=== PATIENT | female | born 1975 | race Two or more races ===

== ENCOUNTER 2021-07-08 16:00 | Emergency (ER) | payer OTHER, SELFPAY ==
--- NOTE | ~2021-07-08 | US_ITS ---
EXAMINATION: US ABDOMEN LIMITED CLINICAL INFORMATION: Right upper quadrant pain, question cholelithiasis. COMPARISON: None TECHNIQUE: Real-time imaging of the right upper quadrant abdominal viscera. FINDINGS: PANCREAS: The visualized proximal portion of the pancreas is unremarkable. The distal portion is obscured secondary to overlying bowel gas. LIVER: The liver is normal in size. The liver contour is normal. Parenchymal echogenicity is normal. No focal hepatic lesion. There is no intrahepatic biliary duct dilatation seen. GALLBLADDER: The gallbladder is physiologically distended without evidence of stones, sludge, polyps, wall thickening or pericholecystic fluid. Sonographic Rodriguez sign is reportedly negative. COMMON BILE DUCT: Normal in caliber measuring 0.4 cm in diameter. RIGHT KIDNEY: No hydronephrosis. No renal calculi or focal parenchymal lesions. The kidney measures 11.1 cm in maximum dimension. FREE FLUID: None. US/US abdomen limited IMPRESSION: No abnormality demonstrated.
[2021-07-08 18:16] VITALS: BP 181/100; PULSE 82; RESP 18; TEMP 37.1; O2SAT 100; BMI 30.9
[2021-07-08 19:02] LABS: MANUAL DIFF FLAG NO
[2021-07-08 19:03] LABS: Basophils Percent Auto 0.3 % (0-2); Eosinophils Absolute Auto 0.1 X10*3/uL (0.0-0.4); Eosinophils Percent Auto 0.7 % (0-4); Hematocrit 38.2 % (37.0-47.0); Hemoglobin 12.5 g/dl (12.0-16.0); Imm Gran Abs Auto 0.01 X10*3/uL (0.00-0.03); Imm Gran Pct Auto 0.1 % (0.0-0.4); Lymphocytes Absolute Auto 1.8 X10*3/uL (1.2-4.9); Lymphocytes Percent Auto 24.7 % (20-40); Mean Corpuscular HGB Conc 32.7 g/dl (31.0-35.0); Mean Corpuscular Hemoglobin 29.9 pg (27.0-33.0); Mean Corpuscular Volume 91.4 fL (80.0-98.0); Mean Platelet Volume 10.1 fL (9.4-12.3); Monocytes Absolute Auto 0.7 X10*3/uL (0.1-1.2); Monocytes Percent Auto 9.1 % (2-11); Neutrophils Absolute Auto 4.8 x10*3/uL (2.0-8.3); Neutrophils Percent Auto 65.1 % (45-73); Platelet Count 415 X10*3/uL (160-400); Red Blood Count 4.18 X10*6/uL (4.20-5.50); Red Cell Distribution Width 12.9 % (11.0-16.0); White Blood Count 7.4 X10*3/uL (4.8-10.8)
[2021-07-08 19:08] LABS: Appearance Urine CLEAR; Color Urine YELLOW; Glucose Urine UA NEG (NEG); Leukocyte Esterase Urine NEG (NEG); Nitrite Urine NEG (NEG); Urine Blood NEG (NEG); Urine Ketones 40 MG/DL (NEG); Urine Protein NEG (NEG-TRACE)
[2021-07-08 19:17] LABS: Anion Gap 16 (12-20); Blood Urea Nitrogen 7 mg/dL (9-16); Calcium 10.2 mg/dL (8.4-10.2); Carbon Dioxide 22 mmol/L (22-29); Chloride 104 mmol/L (96-108); Creatinine Clr Calc Pharmacy 90.5; Estimated Glomerular Filt Rate > 60; Glucose Random 84 mg/dL (60-115); Lipase 14 U/L (8-78); Potassium 3.8 mmol/L (3.3-5.1); Sodium 138 mmol/L (135-145)
--- NOTE | 2021-07-08 23:36 | ED.ABDPAIN ---
HPI - Abdominal Pain General Chief Complaint: Abdominal Pain Stated Complaint: sharp pain in abd Time Seen by Provider: 07/08/21 23:36 Source: patient Mode of arrival: ambulatory Limitations: no limitations History of Present Illness HPI narrative: Patient with no significant abdominal complaints in the past noticed pain in the epigastric area for last 3 days specially after eating food slight nausea slight bloating this no vomiting no diarrhea no fever Related Data Previous Rx's Medication Instructions Recorded pantoprazole 40 mg tablet,delayed 40 mg PO DAILY #30 tab 07/09/21 release (Protonix) sucralfate 1 gram tablet 1 g PO TID #90 tab 07/09/21 Allergies Allergy/AdvReac Type Severity Reaction Status Date / Time No Known Allergies Allergy Verified 07/08/21 18:15 Review of Systems Review of Systems Yes all other systems are reviewed and are negative [facility] Past Medical History Medical History HTN (hypertension) Social History Social History Advance Directives: No Advance Directives Information Provided: No Physical Exam ED Vital Signs: Vital Signs - 24 hr 07/08/21 18:16 07/08/21 23:51 07/09/21 00:05 Temperature 98.7 F Pulse Rate 82 69 Respiratory Rate 18 18 18 Blood Pressure 181/100 H 152/79 H Pulse Oximetry 100 100 100 07/09/21 01:51 Temperature 97.8 F Pulse Rate 68 Respiratory Rate 12 Blood Pressure 139/82 Pulse Oximetry 99 BMI result Body Mass Index 30.9 Appearance: Alert. Oriented X3. No acute distress. Eyes: No pallor/ icterus ENT: Pharynx normal. Oral Mucosa moist Neck: Normal inspection. Neck supple. CVS: Normal heart rate and rhythm. Pulses normal. Respiratory: No respiratory distress. Equal air entry bilateral, no wheezing/rales/rhonchi Abdomen: Soft , tenderness right upper quadrant and epigastric area no rebound tenderness or guarding Bowel sounds are present, no mass palpable, no CVA tenderness Skin: Skin warm and dry. Normal skin color. Normal skin turgor. Extremities: No lower extremity edema. No calf tenderness Neuro: Oriented X 3. MDM - Abdominal Pain MDM Narrative Medical decision making narrative: Ultrasound negative for gallstones pain likely from gastritis discharge patient home on Protonix and sucralfate Lab Data Result diagrams: 07/08/21 18:57 07/08/21 18:57 Labs: Lab Results 07/08/21 07/08/21 07/08/21 Range/Units 18:57 18:57 18:57 WBC 7.4 (4.8-10.8) X10*3/uL RBC 4.18 L (4.20-5.50) X10*6/uL Hgb 12.5 (12.0-16.0) g/dl Hct 38.2 (37.0-47.0) % MCV 91.4 (80.0-98.0) fL MCH 29.9 (27.0-33.0) pg MCHC 32.7 (31.0-35.0) g/dl RDW 12.9 (11.0-16.0) % Plt Count 415 H (160-400) X10*3/uL MPV 10.1 (9.4-12.3) fL Immature Gran % (Auto) 0.1 (0.0-0.4) % Neut % (Auto) 65.1 (45-73) % Lymph % (Auto) 24.7 (20-40) % Swain % (Auto) 9.1 (2-11) % Eos % (Auto) 0.7 (0-4) % Baso % (Auto) 0.3 (0-2) % Lymph # (Auto) 1.8 (1.2-4.9) X10*3/uL Swain # (Auto) 0.7 (0.1-1.2) X10*3/uL Eos # (Auto) 0.1 (0.0-0.4) X10*3/uL Baso # (Auto) 0.0 (0.0-0.2) X10*3/uL Abs Immat Gran (auto) 0.01 (0.00-0.03) X10*3/uL Absolute Neuts (auto) 4.8 (2.0-8.3) x10*3/uL Absolute Nucleated RBC 0.000 (0.0-0.012) X10*3/uL Nucleated RBC % (auto) 0.0 (0.0-0.2) /100WBC Sodium 138 (135-145) mmol/L Potassium 3.8 (3.3-5.1) mmol/L Chloride 104 (96-108) mmol/L Carbon Dioxide 22 (22-29) mmol/L Anion Gap 16 (12-20) BUN 7 L (9-16) mg/dL Creatinine 0.63 (0.5-1.4) mg/dL Estim Creat Clear Calc 90.5 Estimated GFR > 60 Random Glucose 84 (60-115) mg/dL Calcium 10.2 (8.4-10.2) mg/dL Total Bilirubin 0.3 (0.0-1.0) mg/dL Direct Bilirubin 0.2 (0.0-0.5) mg/dL AST 36 H (5-31) U/L ALT 59 H (0-31) U/L Alkaline Phosphatase 65 (39-117) U/L Total Protein 7.9 (6.5-8.0) g/dL Albumin 4.5 (3.5-5.0) g/dL Lipase 14 (8-78) U/L Urine Color YELLOW Urine Appearance CLEAR Urine pH 6.0 (5.0-8.0) Ur Specific [place] 1.010 (1.005-1.025) Urine Protein NEG (NEG-TRACE) MG/DL Urine Glucose (UA) NEG (NEG) MG/DL Urine Ketones 40 (NEG) MG/DL Urine Blood NEG (NEG) Urine Nitrite NEG (NEG) Ur Leukocyte Esterase NEG (NEG) Discharge Plan Discharge Clinical Impression: Gastritis Patient Disposition: Home, Self-Care Instructions: Gastritis (ED) Additional Instructions: Avoid fried/spicy food Take Protonix and sucralfate as advised Follow-up with PCP Prescriptions: New pantoprazole [Protonix] 40 mg tablet,delayed release (DR/EC) 40 mg PO DAILY Qty: 30 0RF sucralfate 1 gram tablet 1 g PO TID Qty: 90 0RF Interventions: ED Discharge Assessment Last Done: 07/09/21 01:59 Discharge Date/Time: 07/09/21 02:00
[2021-07-08 23:51] VITALS: BP 152/79; PULSE 69; RESP 18; O2SAT 100
[2021-07-08 23:54] LABS: Alanine Aminotransferase 59 U/L (0-31); Albumin Level 4.5 g/dL (3.5-5.0); Alkaline Phosphatase 65 U/L (39-117); Aspartate Amino Transferase 36 U/L (5-31); Bilirubin Direct 0.2 mg/dL (0.0-0.5); Bilirubin Total 0.3 mg/dL (0.0-1.0); Total Protein 7.9 g/dL (6.5-8.0)
[2021-07-08] MEDS: oxyCODONE HCl Immed Release 5 MG TABLET PO (23:54)
[2021-07-09 00:05] VITALS: RESP 18; O2SAT 100
[2021-07-09 01:51] VITALS: BP 139/82; PULSE 68; RESP 12; TEMP 36.6; O2SAT 99
== END 2021-07-09 02:00 | disposition home or self-care (01) ==
PROVIDERS: Emergency Provider Internal Medicine; PCP Internal Medicine
DX: K29.70 Gastritis, unspecified, without bleeding (principal); R10.13 Epigastric pain; Z79.899 Other long term (current) drug therapy
CPT/HCPCS: 36415; 76705; 80048; 80076; 81003; 83690; 85025; 99283

== ENCOUNTER 2021-09-08 11:15 | Emergency (ER) | payer OTHER, SELFPAY ==
--- NOTE | 2021-09-08 11:25 | ECG_ITS ---
Test Reason : cp Blood Pressure : / mmHG Vent. Rate : 117 BPM Atrial Rate : 117 BPM P-R Int : 130 ms QRS Dur : 068 ms QT Int : 302 ms P-R-T Axes : 052 030 023 degrees QTc Int : 421 ms Sinus tachycardia Otherwise normal ECG No previous ECGs available Referred By: Generic ED Physician Electronically Signed By:LYNDSAY CANO MD
[2021-09-08 11:33] VITALS: BP 186/94; PULSE 121; RESP 14; TEMP 36.6; O2SAT 100; BMI 30.9
--- NOTE | 2021-09-08 16:11 | ED_ITS ---
HPI - General Adult General Chief complaint: Headache Stated complaint: high BP, chest pain Time Seen by Provider: 09/08/21 16:10 Source: patient History of Present Illness HPI narrative: This is a 45-year-old female with a history of hypertension, who has had recent sinus congestion, sneezing, itchy eyes. The patient has been seen twice in Urgent Care. She was initially placed on a ?syrup?, but went back yesterday and was prescribed amoxicillin. She notes she continues to have nasal congestion and also today has had some mild headache. She took her blood pressure at work and was elevated. She does take lisinopril 20 mg a day in the morning. She has recently been on Zyrtec for allergies but has not used any nasal inhaler. Her headache is gone now. She denies any current chest pain or shortness of breath, nausea vomiting, focal weakness or numbness in arms face or legs. Related Data Previous Rx's Medication Instructions Recorded pantoprazole 40 mg tablet,delayed 40 mg PO DAILY #30 tab 07/09/21 release (Protonix) sucralfate 1 gram tablet 1 g PO TID #90 tab 07/09/21 fluticasone propionate 50 2 spray INTRANASAL DAILY #16 g 09/08/21 mcg/actuation nasal spray,suspension (Flonase Allergy Relief) lisinopril 30 mg tablet 30 mg PO DAILY #30 tab 09/08/21 Allergies Allergy/AdvReac Type Severity Reaction Status Date / Time No Known Allergies Allergy Verified 07/08/21 18:15 Review of Systems Review of Systems: Yes all other systems are reviewed and are negative Constitutional: Constitutional: Reports as per HPI, Denies fever(s) and Reports headache(s) Eyes: Eyes: Reports as per HPI and Reports no additional eye complaints ENT: Reports system reviewed and no additional complaints, except as documented, Reports as per HPI, Reports headache(s), Reports nasal congestion, Reports nasal discharge and Denies sore throat Cardiovascular: Cardiovascular: Reports as per HPI, Denies chest pain and Denies dyspnea Respiratory: Respiratory: Reports as per HPI, Denies cough and Denies dyspnea Gastrointestinal: Gastrointestinal: Reports as per HPI, Denies abdominal pain, Denies diarrhea and Denies vomiting Genitourinary: Genitourinary: Reports as per HPI, Denies hematuria, Denies urinary frequency and Denies dysuria Musculoskeletal: Musculoskeletal: Reports no additional musculoskeletal complaints and Denies numbness Integumentary/Breasts: Skin/Breast: Reports as per HPI and Denies rash Neurologic: Reports as per HPI, Reports headache(s), Denies focal weakness and Denies numbness Psychiatric: Psychiatric: Reports no additional psychiatric complaints and Reports as per HPI Endocrine: Endocrine: Reports no additional endocrine complaints and Reports as per HPI Hematologic/Lymphatic: Hematologic/Lymphatic: Reports no additional hematologic/lymphatic complaints, Reports as per HPI and Reports other (No peripheral edema) FOR[facility]LY [facility], [facility] Past Medical History Medical History HTN (hypertension) Social History Social History Advance Directives: No Advance Directives Information Provided: Yes Physical Exam ED Vital Signs: Vital Signs - 24 hr 09/08/21 11:33 09/08/21 16:52 09/08/21 17:21 Temperature 98 F Pulse Rate 121 H 98 Respiratory Rate 14 16 Blood Pressure 186/94 H 165/107 H 125/79 Pulse Oximetry 100 100 BMI result Body Mass Index 30.9 Const Other: Patient overall well appearing, has obvious nasal congestion/rhinorrhea General: no acute distress Orientation/consciousness: patient oriented x3 HENMT Head: Yes normal to inspection General nose exam: Normal external nose present Mouth: moist mucous membranes Throat: Yes posterior oropharynx normal, Yes tonsils normal and Yes uvula midline Eyes Eyelids: Yes eyelids normal Conjunctivae: conjunctivae normal Pupils: Equal, round and reactive pupils present Neck Neck: Yes supple Resp Effort & Inspection: normal respiratory effort Auscultation: clear to auscultation bilaterally Cardio Rate: regular rate Rhythm: regular rhythm Heart sounds: S1 normal heart sound present, S2 normal heart sound present, no gallops, no murmurs and no rubs GI Inspection: No distended Palpation (GI): Soft to palpation and nontender Auscultation: normal bowel sounds Skin General skin exam: other (Warm and dry) Neuro General: patient oriented x3 and CN's II-XI intact bilaterally Cranial nerves: Yes Equal, round and reactive pupils present Extrem General: Yes no pedal edema Psych Affect: normal affect Attitude: cooperative Medical Decision Making [facility] Narrative Medical decision making narrative: Patient with complaint of headache, allergy symptoms, some chest discomfort. Patient is on blood pressure medicine, lisinopril 20 mg daily. Patient was significantly hypertensive, improved with lisinopril 10 mg p.o. and clonidine 0.2 mg p.o.. Patient felt better. EKG shows no concerning findings. Headache seems to be related to congestion. Patient has been on antihistamine, will add Flonase as she clearly still has rhinorrhea. Will recommend the patient increase her lisinopril to 30 mg daily and follow up with primary care physician ECG Data Attestation: I personally reviewed and interpreted this ECG as follows: Interpretation: Sinus tachycardia with a rate of 117. No ST elevation or depression, borderline atrial enlargement. Discharge Plan Discharge Clinical Impression: Hypertension, Acute seasonal allergic rhinitis Patient Disposition: Home, Self-Care Instructions: Allergic Rhinitis (ED), Hypertension (ED), How to Use Nasal [place] (ED) Additional Instructions: Increase your lisinopril to 30 mg in the morning. Use Flonase as prescribed, in addition to the Zyrtec you are using. Follow up with her primary care physician for re-evaluation of her blood pressure. Return for any new or worsened symptoms Prescriptions: New fluticasone propionate [Flonase Allergy Relief] 50 mcg/actuation spray,suspension 2 spray intranasal DAILY Qty: 16 1RF Rx Instructions: administer into each nostril lisinopril 30 mg tablet 30 mg PO DAILY Qty: 30 0RF No Action pantoprazole [Protonix] 40 mg tablet,delayed release (DR/EC) 40 mg PO DAILY Qty: 30 0RF sucralfate 1 gram tablet 1 g PO TID Qty: 90 0RF Interventions: ED Discharge Assessment Last Done: 09/08/21 18:22 Discharge Date/Time: 09/08/21 18:23
[2021-09-08 16:52] VITALS: BP 165/107; PULSE 98; RESP 16; O2SAT 100
[2021-09-08] MEDS: lisinopriL 10 MG TABLET PO (16:53)
[2021-09-08] MEDS: cloNIDine HCL 0.2 MG TABLET PO (16:53)
[2021-09-08 17:21] VITALS: BP 125/79
== END 2021-09-08 18:23 | disposition home or self-care (01) ==
PROVIDERS: Emergency Provider Emergency Medicine
DX: J30.2 Other seasonal allergic rhinitis (principal); R51.9 Headache, unspecified; I10 Essential (primary) hypertension; Z79.899 Other long term (current) drug therapy
CPT/HCPCS: 93005; 99283; 99284

== ENCOUNTER 2022-08-12 09:00 | Emergency (ER) | payer OTHER, SELFPAY ==
--- NOTE | ~2022-08-12 | CT_ITS ---
CT ANGIOGRAM NECK WITH CONTRAST CT ANGIOGRAM BRAIN WITH CONTRAST CLINICAL INFORMATION: Dizziness and headaches. COMPARISON: None available. TECHNIQUE: Test bolus sequences followed by intravenous administration 70 mL of Omnipaque 350. Helical imaging was performed in the axial plane from the thoracic inlet to the skull vertex. Delayed postcontrast imaging of the head was also performed. The data was processed at the clinical technologist workstation for generation of MIP sequences. Angled MIPs and volume rendered reformatted images were also generated at an offline 3D workstation under concurrent supervision. Stenoses are assessed in accordance with NASCET criteria unless otherwise indicated. This CT examination was performed using dose optimization techniques as appropriate, variously including the following: *Automated exposure control *Adjustment of mA and/or kV according to patient size (this includes techniques or standardized protocols for targeted exams where dose is matched to indication/reason for exam; i.e. extremities or head) *Use of iterative reconstruction technique FINDINGS: BRAIN: [There is no intracranial hemorrhage, hydrocephalus, extra-axial surface collection, midline shift, or other herniation pattern. Mcmahan to white matter differentiation is diffusely maintained without evidence of an evolved acute territorial infarct. The basilar cisterns are preserved. No significant soft tissue abnormality. No acute osseous abnormality. The paranasal sinuses and the mastoid air cells are well aerated.] CERVICAL SOFT TISSUES AND LUNG APICES: [Unremarkable. ] NECK CTA: [There is a classic 3 vessel configuration of the aortic arch. Proximal arch vessels are non-stenotic. The vertebral arteries are codominant. No significant ostial stenosis is visualized on either side. Both vertebral arteries are widely patent throughout their extracranial cervical course. Both common and internal carotid arteries are normal in course and caliber.] BRAIN CTA: [There is normal opacification of major intracranial arteries. No focal flow-limiting stenosis nor discrete proximal large artery occlusion. No aneurysm. Timing of the contrast bolus allows assessment of the major dural venous sinuses, which all opacify normally] CT/CT head/brain wo IV con IMPRESSION: Unremarkable CTA of the head and neck.
--- NOTE | ~2022-08-12 | CT_ITS ---
CT ANGIOGRAM NECK WITH CONTRAST CT ANGIOGRAM BRAIN WITH CONTRAST CLINICAL INFORMATION: Dizziness and headaches. COMPARISON: None available. TECHNIQUE: Test bolus sequences followed by intravenous administration 70 mL of Omnipaque 350. Helical imaging was performed in the axial plane from the thoracic inlet to the skull vertex. Delayed postcontrast imaging of the head was also performed. The data was processed at the production control technologist workstation for generation of MIP sequences. Angled MIPs and volume rendered reformatted images were also generated at an offline 3D workstation under concurrent supervision. Stenoses are assessed in accordance with NASCET criteria unless otherwise indicated. This CT examination was performed using dose optimization techniques as appropriate, variously including the following: *Automated exposure control *Adjustment of mA and/or kV according to patient size (this includes techniques or standardized protocols for targeted exams where dose is matched to indication/reason for exam; i.e. extremities or head) *Use of iterative reconstruction technique FINDINGS: BRAIN: [There is no intracranial hemorrhage, hydrocephalus, extra-axial surface collection, midline shift, or other herniation pattern. Mcmahan to white matter differentiation is diffusely maintained without evidence of an evolved acute territorial infarct. The basilar cisterns are preserved. No significant soft tissue abnormality. No acute osseous abnormality. The paranasal sinuses and the mastoid air cells are well aerated.] CERVICAL SOFT TISSUES AND LUNG APICES: [Unremarkable. ] NECK CTA: [There is a classic 3 vessel configuration of the aortic arch. Proximal arch vessels are non-stenotic. The vertebral arteries are codominant. No significant ostial stenosis is visualized on either side. Both vertebral arteries are widely patent throughout their extracranial cervical course. Both common and internal carotid arteries are normal in course and caliber.] BRAIN CTA: [There is normal opacification of major intracranial arteries. No focal flow-limiting stenosis nor discrete proximal large artery occlusion. No aneurysm. Timing of the contrast bolus allows assessment of the major dural venous sinuses, which all opacify normally] CT/CT angio head neck IMPRESSION: Unremarkable CTA of the head and neck.
[2022-08-12 09:11] VITALS: BP 174/85; PULSE 72; RESP 14; O2SAT 100; BMI 28.6
--- NOTE | 2022-08-12 09:36 | ED_ITS ---
HPI - Dizziness General Chief Complaint: Dizziness Stated Complaint: Dizziness per EMS Time Seen by Provider: 08/12/22 09:11 Source: patient and RN notes reviewed Mode of arrival: EMS Limitations: no limitations History of Present Illness HPI Narrative: This is a 46-year-old female, with a past medical history of hypertension, who presents to the emergency department today with acute onset of dizziness which started at 7:30 a.m. this morning. 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 She describes his dizziness as if she was on boat, denies as if the room was spinning. Patient reports that she had to immediately sit down. She states that she had the nurse check her blood pressure and her blood pressure was 170s/90s. She states that this is unusually high, reports she typically has a blood pressure systolic at or below 140. Her symptoms have not resolved since this onset. She reports a mild posterior headache as well as associated nausea. She reports that over this past week she has felt okay denies any recent URI symptoms. She reports the dizziness worsens with positional changes and with ambulation. She denies any ringing in her ears, fevers, chills, vomiting, diarrhea, abdominal pain. Denies history of vertigo in the past. She reports that she recently had started Zoloft. MD elicited complaint: lightheadedness and near syncope Timing: sudden onset Severity: moderate Description: sense of movement, off-balance and near-syncope Context: change in medication (Recently started Zoloft) History of similar symptoms: No Exacerbating factors: movement/ambulation and change in body position Associated symptoms: denies other symptoms Associated neuro symptoms: vision changes Related Data Previous Rx's Medication Instructions Recorded pantoprazole 40 mg tablet,delayed 40 mg PO DAILY #30 tabs 07/09/21 release (Protonix) sucralfate 1 gram tablet 1 g PO TID #90 tabs 07/09/21 fluticasone propionate 50 2 spray intranasal DAILY #16 grams 09/08/21 mcg/actuation nasal spray,suspension (Flonase Allergy Relief) lisinopril 30 mg tablet 30 mg PO DAILY #30 tabs 09/08/21 meclizine 25 mg tablet 25 mg PO BID PRN dizziness #30 tabs 08/12/22 ondansetron 4 mg disintegrating 4 mg PO Q6H PRN nausea and 08/12/22 tablet vomiting #14 tabs Allergies Allergy/AdvReac Type Severity Reaction Status Date / Time No Known Allergies Allergy Verified 08/12/22 09:16 [facility] Past Medical History Medical History HTN (hypertension) Social History Social History Smoked in Last 30 Days: No Advance Directives: No Physical Exam Vital Signs: Vital Signs: Last Vital Signs Temp 98.1 F 08/12/22 11:40 Pulse 63 08/12/22 11:39 Resp 14 08/12/22 11:40 BP 141/73 H 08/12/22 11:39 Pulse Ox 97 08/12/22 11:40 O2 Del Method Room Air 08/12/22 11:40 BMI result Body Mass Index 28.6 Appearance: Alert. Oriented X3. No acute distress. Eyes: Pupils equal, round and reactive to light. EOMI. No nystagmus. ENT: Pharynx normal. Oral pharynx is nonerythematous, nonedematous, uvula is midline. Tongue midline. Neck: Normal inspection. Neck supple. Full range of motion. Mild tenderness to palpation overlying the left cervical paraspinous muscles and occiput. CVS: Normal heart rate and rhythm. Pulses normal. S1-S2 regular, no murmurs, rubs, or gallops Respiratory: No respiratory distress. Breath sounds normal. Lungs clear to auscultation bilaterally Abdomen: Soft and nontender. +BS x4 Skin: Skin warm and dry. Normal skin color. Normal skin turgor. No rashes. Extremities: No lower extremity edema. No calf tenderness. Neuro: Oriented X 3. No motor deficit. No sensory deficit. CN II-XII intact. Symmetric smile, able to raise eyebrows, strength is 5/5 in upper and lower extremities. Ambulatory with steady gait. Negative Romberg. Distal sensation and circulation intact. NIH Stroke Scale Time: 07:30 Level of Consciousness: Alert Level of Consciousness Questions: Answers both questions correctly Level of Consciousness Commands: Performs both tasks correctly Best Gaze: Normal Visual: No visual loss Facial Palsy: Normal Motor Arm (Right): No drift Motor Arm (Left): No drift Motor Leg (Right): No drift Motor Leg (Left): No drift Sensory: Normal Best Language: No aphasia Dysarthia: Normal Extinction and Inattention: No abnormality Course Reevaluation(s) Reevaluation #1: CT, CTA head and neck were reviewed as unremarkable. Patient re-evaluated, patient resting comfortably in stretcher. Patient reports that she still is dizzy, however reports that the symptoms are slowly improving. Orthostatic vital signs and 1 L of IV fluids ordered. Patient will be medicated with 25 mg IV Benadryl and 10 mg of Reglan. Time: 10:45 Reevaluation #2: Patient re-evaluated, reports that she is feeling much better after IV fluids and medications. CT negative, no electrolyte abnormalities, patient is not orthostatic, UA without any signs of infection, there is large blood however patient is currently has her menses right now. H&H within normal limits. Patient has a follow-up with her primary care physician later on today. Long discussion regarding negative workup, although it is uncertain what caused her symptoms today and was wondering if it was secondary to her high blood pressure. Patient's blood pressure 130s/70s now. Discussed with patient that we are not going to make any adjustments to her hypertensive medications at this time although this is a good discussion for her to bring up at her primary care visit later on this afternoon. Will treat with meclizine and Zofran as needed. Patient given referral to Neurology and pipe smoking machine offbearer. Patient understands and agrees with plan. Time: 13:18 Medications Administered Discontinued Medications Generic Name Dose Route Start Last Admin Trade Name Willa PRN Reason Stop Dose Admin Diphenhydramine HCl 25 mg 08/12/22 11:17 08/12/22 11:52 Diphenhydramine Hcl 50 Mg/Ml Vial IVPUSH 08/12/22 11:18 25 mg ONCE ONE Administration Sodium Chloride 1,000 mls @ 999 mls/hr 08/12/22 11:09 08/12/22 11:18 Ns IVCONT 08/12/22 12:09 999 mls/hr .Q1H1M ONE Administration Iohexol 70 ml 08/12/22 10:03 08/12/22 10:03 Iohexol 350 Mg/Ml 100 Ml Infus..Btl IV 08/12/22 10:04 70 ml ONCE ONE Administration Meclizine HCl 25 mg 08/12/22 09:27 08/12/22 10:09 Meclizine Hcl 25 Mg Tablet PO 08/12/22 09:28 25 mg ONCE ONE Administration Metoclopramide HCl 10 mg 08/12/22 11:17 08/12/22 11:53 Metoclopramide Hcl 10 Mg/2 Ml Vial IVPUSH 08/12/22 11:18 10 mg ONCE ONE Administration Medical Decision Making Medical Decision Making [facility] Narrative: 09:50AM - 46-year-old female, with a past medical history of hypertension, presenting for evaluation of dizziness which occurred suddenly 730 this morning. 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 She had her BP taken at that time and was elevated at 170s/90s. Denies history of vertigo or similar symptoms in the past. She started Zoloft 3 weeks ago. On presentation patient mildly hypertensive at 174/85, follow vital signs within normal limits. On examination, patient was fully neurologically intact. Given onset of symptoms and within 4 hour window and consideration of possible tPA canidacy, will order CT head, CTA neck and head stat to r/o stroke. NIHSS score = 0. Case discussed with stroke team. Plan: Labs, EKG, CT head, CTA head and neck Differential Diagnosis Differential Diagnoses: The differential diagnosis associated with the presentation includes Posterior stroke, CVA, vertigo, dehydration, electrolyte abnormality, arrhythmia Consult Healthcare Provider Management of the patient was discussed with: Pumper Gauger Stroke team Lab Data [facility] Lab Attestation statement: I reviewed the patient's lab results. 08/12/22 09:42 08/12/22 09:42 Labs: Lab Results 08/12/22 08/12/22 08/12/22 Range/Units 09:42 09:42 09:42 WBC 7.1 (4.8-10.8) X10*3/uL RBC 4.35 (4.20-5.50) X10*6/uL Hgb 13.5 (12.0-16.0) g/dl Hct 41.1 (37.0-47.0) % MCV 94.5 (80.0-98.0) fL MCH 31.0 (27.0-33.0) pg MCHC 32.8 (31.0-35.0) g/dl RDW 12.9 (11.0-16.0) % Plt Count 393 (160-400) X10*3/uL MPV 10.4 (9.4-12.3) fL Immature Gran % (Auto) 0.3 (0.0-0.4) % Neut % (Auto) 65.4 (45-73) % Lymph % (Auto) 23.5 (20-40) % [place] % (Auto) 9.6 (2-11) % Eos % (Auto) 0.6 (0-4) % Baso % (Auto) 0.6 (0-2) % Lymph # (Auto) 1.7 (1.2-4.9) X10*3/uL [place] # (Auto) 0.7 (0.1-1.2) X10*3/uL Eos # (Auto) 0.0 (0.0-0.4) X10*3/uL Baso # (Auto) 0.0 (0.0-0.2) X10*3/uL Abs Immat Gran (auto) 0.02 (0.00-0.03) X10*3/uL Absolute Neuts (auto) 4.7 (2.0-8.3) x10*3/uL Absolute Nucleated RBC 0.000 (0.0-0.012) X10*3/uL Nucleated RBC % (auto) 0.0 (0.0-0.2) /100WBC PT 11.0 (10.0-13.1) SEC INR 1.0 (0.9-1.1) APTT 37.9 H (26.0-36.4) SEC Sodium 139 (135-145) mmol/L Potassium 4.5 (3.3-5.1) mmol/L Chloride 104 (96-108) mmol/L Carbon Dioxide 25 (22-29) mmol/L Anion Gap 15 (12-20) BUN 8 L (9-16) mg/dL Creatinine 0.74 (0.5-1.4) mg/dL Estim Creat Clear Calc 86.7 Estimated GFR > 60 Random Glucose 103 (60-115) mg/dL Calcium 9.6 (8.4-10.2) mg/dL Magnesium 2.1 (1.6-2.6) mg/dL Total Bilirubin 0.6 (0.0-1.0) mg/dL Direct Bilirubin < 0.2 (0.0-0.5) mg/dL AST 28 (5-31) U/L ALT 20 (0-31) U/L Alkaline Phosphatase 63 (39-117) U/L Total Protein 8.5 H (6.5-8.0) g/dL Albumin 4.9 (3.5-5.0) g/dL Urine Color Urine Appearance Urine pH (5.0-9.0) Ur Specific [place] (1.005-1.025) Urine Protein (Neg-Trace) mg/dL Urine Glucose (UA) (Negative) mg/dL Urine Ketones (Negative) mg/dL Urine Blood (Negative) Urine Nitrite (Negative) Ur Leukocyte Esterase (Negative) Urine RBC (0-2) /HPF Urine WBC (0-5) /HPF Ur Squamous Epith Cells (0-2) /HPF Urine Bacteria (None Seen) Hyaline Casts (0-2) /LPF Influenza Type A (PCR) (Negative) Influenza Type B (PCR) (Negative) RSV RNA Qual (PCR) (Negative) SARS-CoV-2 RNA (RT-PCR) (Negative) 08/12/22 08/12/22 Range/Units 09:42 11:19 WBC (4.8-10.8) X10*3/uL RBC (4.20-5.50) X10*6/uL Hgb (12.0-16.0) g/dl Hct (37.0-47.0) % MCV (80.0-98.0) fL MCH (27.0-33.0) pg MCHC (31.0-35.0) g/dl RDW (11.0-16.0) % Plt Count (160-400) X10*3/uL MPV (9.4-12.3) fL Immature Gran % (Auto) (0.0-0.4) % Neut % (Auto) (45-73) % Lymph % (Auto) (20-40) % [place] % (Auto) (2-11) % Eos % (Auto) (0-4) % Baso % (Auto) (0-2) % Lymph # (Auto) (1.2-4.9) X10*3/uL [place] # (Auto) (0.1-1.2) X10*3/uL Eos # (Auto) (0.0-0.4) X10*3/uL Baso # (Auto) (0.0-0.2) X10*3/uL Abs Immat Gran (auto) (0.00-0.03) X10*3/uL Absolute Neuts (auto) (2.0-8.3) x10*3/uL Absolute Nucleated RBC (0.0-0.012) X10*3/uL Nucleated RBC % (auto) (0.0-0.2) /100WBC PT (10.0-13.1) SEC INR (0.9-1.1) APTT (26.0-36.4) SEC Sodium (135-145) mmol/L Potassium (3.3-5.1) mmol/L Chloride (96-108) mmol/L Carbon Dioxide (22-29) mmol/L Anion Gap (12-20) BUN (9-16) mg/dL Creatinine (0.5-1.4) mg/dL Estim Creat Clear Calc Estimated GFR Random Glucose (60-115) mg/dL Calcium (8.4-10.2) mg/dL Magnesium (1.6-2.6) mg/dL Total Bilirubin (0.0-1.0) mg/dL Direct Bilirubin (0.0-0.5) mg/dL AST (5-31) U/L ALT (0-31) U/L Alkaline Phosphatase (39-117) U/L Total Protein (6.5-8.0) g/dL Albumin (3.5-5.0) g/dL Urine Color Yellow Urine Appearance Clear Urine pH 7.0 (5.0-9.0) Ur Specific [place] 1.020 (1.005-1.025) Urine Protein Negative (Neg-Trace) mg/dL Urine Glucose (UA) Negative (Negative) mg/dL Urine Ketones Trace (Negative) mg/dL Urine Blood Large (3+) H (Negative) Urine Nitrite Negative (Negative) Ur Leukocyte Esterase Negative (Negative) Urine RBC >20 H (0-2) /HPF Urine WBC 0-5 (0-5) /HPF Ur Squamous Epith Cells 0-2 (0-2) /HPF Urine Bacteria None Seen (None Seen) Hyaline Casts 0-2 (0-2) /LPF Influenza Type A (PCR) NEGATIVE (Negative) Influenza Type B (PCR) NEGATIVE (Negative) RSV RNA Qual (PCR) NEGATIVE (Negative) SARS-CoV-2 RNA (RT-PCR) NEGATIVE (Negative) Independent Interpretation I performed an independent interpretation of an: EKG Interpretation: Vent. Rate : 057 BPM ? ? Atrial Rate : 057 BPM ?? P-R Int : 120 ms? QRS Dur : 074 ms ? ? QT Int : 460 ms ? ? ? P-R-T Axes : 039 032 027 degrees ?? QTc Int : 447 ms ? Sinus bradycardia at a ventricular rate of 57 beats per minute, normal OR interval, normal QT, QTC 447. No ST elevation or depression, no acute ischemic changes. Radiology Impression Discussion of test interpretation with radiology: I have reviewed the radiologist's reading. Radiologist Impression: CT ANGIOGRAM NECK WITH CONTRAST CT ANGIOGRAM BRAIN WITH CONTRAST CLINICAL INFORMATION: Dizziness and headaches.? COMPARISON: None available. TECHNIQUE: Test bolus sequences followed by intravenous administration 70 mL of Omnipaque 350. Helical imaging was performed in the axial plane from the thoracic inlet to the skull vertex. Delayed postcontrast imaging of the head was also performed. The data was processed at the nuclear medicine chief technologist workstation for generation of MIP sequences. Angled MIPs and volume rendered reformatted images were also generated at an offline 3D workstation under concurrent supervision. Stenoses are assessed in accordance with NASCET criteria unless otherwise indicated. This CT examination was performed using dose optimization techniques as appropriate, variously including the following: *Automated exposure control *Adjustment of mA and/or kV according to patient size (this includes techniques or standardized protocols for targeted exams where dose is matched to indication/reason for exam; i.e. extremities or head) *Use of iterative reconstruction technique FINDINGS: BRAIN: [There is no intracranial hemorrhage, hydrocephalus, extra-axial surface collection, midline shift, or other herniation pattern. Mcmahan to white matter differentiation is diffusely maintained without evidence of an evolved acute territorial infarct. The basilar cisterns are preserved. No significant soft tissue abnormality. No acute osseous abnormality. The paranasal sinuses and the mastoid air cells are well aerated.] CERVICAL SOFT TISSUES AND LUNG APICES: [Unremarkable. ] NECK CTA: [There is a classic 3 vessel configuration of the aortic arch. Proximal arch vessels are non-stenotic. The vertebral arteries are codominant. No significant ostial stenosis is visualized on either side. Both vertebral arteries are widely patent throughout their extracranial cervical course. Both common and internal carotid arteries are normal in course and caliber.] BRAIN CTA: [There is normal opacification of major intracranial arteries. No focal flow-limiting stenosis nor discrete proximal large artery occlusion. No aneurysm. Timing of the contrast bolus allows assessment of the major dural venous sinuses, which all opacify normally] CT/CT angio head neck IMPRESSION: Unremarkable CTA of the head and neck. Dictated By: Yg Hernandez MD Independent Historian Clinical information obtained from an independent historian. History obtained from or confirmed by: EMS Chronic Conditions Patient?s care impacted by: Hypertension Discharge Plan Discharge Clinical Impression: Dizziness Patient Disposition: Home, Self-Care Instructions: Vertigo (ED), Dizziness (ED) Additional Instructions: Your head CT scan was normal today. You tested negative for COVID, flu, and RSV today. Your bloodwork was reassuring. Take prescribed medications as directed. Drink plenty of fluids and get plenty of rest. Take your time when you are standing from a seated position. Follow-up with your primary care physician regarding this visit, keeping a diary of your blood pressure readings every day can be helpful for further management of your blood pressure. I gave you a referral to a neurologist as well as pipe smoking machine offbearer for further follow-up. Call to make an appointment. If any new or worsening symptoms occur, please return for re-evaluation. Prescriptions: New meclizine 25 mg tablet 25 mg PO BID PRN (Reason: dizziness) Qty: 30 0RF ondansetron 4 mg tablet,disintegrating 4 mg PO Q6H PRN (Reason: nausea and vomiting) Qty: 14 0RF No Action pantoprazole [Protonix] 40 mg tablet,delayed release (DR/EC) 40 mg PO DAILY Qty: 30 0RF sucralfate 1 gram tablet 1 g PO TID Qty: 90 0RF fluticasone propionate [Flonase Allergy Relief] 50 mcg/actuation spray,suspension 2 spray intranasal DAILY Qty: 16 1RF Rx Instructions: administer into each nostril lisinopril 30 mg tablet 30 mg PO DAILY Qty: 30 0RF Referrals: Barb Bush MD [Physician] - Alan Oconnell [Physician] - Stand Alone Forms: Work/School Release
--- NOTE | 2022-08-12 09:46 | PC.NURSE ---
Alert and oriented, resp even and unlabored. Denies any pain. IV established, labs drawn and sent. Pt at CT scan at this time.
[2022-08-12 09:48] LABS: MANUAL DIFF FLAG NO
[2022-08-12 09:55] LABS: Basophils Percent Auto 0.6 % (0-2); Eosinophils Percent Auto 0.6 % (0-4); Hematocrit 41.1 % (37.0-47.0); Hemoglobin 13.5 g/dl (12.0-16.0); Imm Gran Abs Auto 0.02 X10*3/uL (0.00-0.03); Imm Gran Pct Auto 0.3 % (0.0-0.4); Lymphocytes Absolute Auto 1.7 X10*3/uL (1.2-4.9); Lymphocytes Percent Auto 23.5 % (20-40); Mean Corpuscular HGB Conc 32.8 g/dl (31.0-35.0); Mean Corpuscular Volume 94.5 fL (80.0-98.0); Mean Platelet Volume 10.4 fL (9.4-12.3); Monocytes Absolute Auto 0.7 X10*3/uL (0.1-1.2); Monocytes Percent Auto 9.6 % (2-11); Neutrophils Absolute Auto 4.7 x10*3/uL (2.0-8.3); Neutrophils Percent Auto 65.4 % (45-73); Platelet Count 393 X10*3/uL (160-400); Red Blood Count 4.35 X10*6/uL (4.20-5.50); Red Cell Distribution Width 12.9 % (11.0-16.0); White Blood Count 7.1 X10*3/uL (4.8-10.8)
[2022-08-12 09:58] LABS: Partial Thromboplastin Time 37.9 SEC (26.0-36.4)
[2022-08-12] MEDS: iohexoL 350 MG/ML 100 ML INFUS..BTL 70 ML IV (10:03)
[2022-08-12] MEDS: Meclizine HCl 25 MG TABLET PO (10:09)
[2022-08-12 10:21] LABS: Alanine Aminotransferase 20 U/L (0-31); Albumin Level 4.9 g/dL (3.5-5.0); Alkaline Phosphatase 63 U/L (39-117); Anion Gap 15 (12-20); Aspartate Amino Transferase 28 U/L (5-31); Bilirubin Direct < 0.2 mg/dL (0.0-0.5); Bilirubin Total 0.6 mg/dL (0.0-1.0); Blood Urea Nitrogen 8 mg/dL (9-16); Calcium 9.6 mg/dL (8.4-10.2); Carbon Dioxide 25 mmol/L (22-29); Chloride 104 mmol/L (96-108); Creatinine Clr Calc Pharmacy 86.7; Estimated Glomerular Filt Rate > 60; Glucose Random 103 mg/dL (60-115); Magnesium 2.1 mg/dL (1.6-2.6); Potassium 4.5 mmol/L (3.3-5.1); Sodium 139 mmol/L (135-145); Total Protein 8.5 g/dL (6.5-8.0)
--- NOTE | 2022-08-12 10:25 | ECG_ITS ---
Test Reason : DIZZINESS Blood Pressure : / mmHG Vent. Rate : 057 BPM Atrial Rate : 057 BPM P-R Int : 120 ms QRS Dur : 074 ms QT Int : 460 ms P-R-T Axes : 039 032 027 degrees QTc Int : 447 ms Sinus bradycardia Otherwise normal ECG When compared with ECG of 08-SEP-2021 11:21, Vent. rate has decreased BY 60 BPM Referred By: Ingrid Morgan Electronically Signed By:Jaguar Bello
[2022-08-12 10:28] LABS: Influenza A PCR NEGATIVE (Negative); Influenza B PCR NEGATIVE (Negative); Resp Syncy Virus RNA Qual PCR NEGATIVE (Negative); SARS COV2 PCR INHOUSE NEGATIVE (Negative)
[2022-08-12] MEDS: 0.9 % Sodium Chloride 1,000 ML 999 ML IVCONT (11:18)
[2022-08-12 11:34] VITALS: BP 143/75; PULSE 61
[2022-08-12 11:35] VITALS: BP 149/78; PULSE 67
[2022-08-12 11:35] LABS: Appearance Urine Clear; Color Urine Yellow; Glucose Urine UA Negative (Negative); Leukocyte Esterase Urine Negative (Negative); Nitrite Urine Negative (Negative); UMIC TRIGGER UACC YES; Urine Blood Large (3+) (Negative); Urine Ketones Trace mg/dL (Negative); Urine Protein Negative (Neg-Trace)
[2022-08-12 11:39] VITALS: BP 141/73; PULSE 63
[2022-08-12 11:39] LABS: Bacteria Urine None Seen (None Seen); Hyaline Casts Urine 0-2 /LPF (0-2); RBC Urine >20 /HPF (0-2); Squamous Epithelial Cell Urine 0-2 /HPF (0-2); WBC Urine 0-5 /HPF (0-5)
[2022-08-12 11:40] VITALS: RESP 14; TEMP 36.7; O2SAT 97
--- NOTE | 2022-08-12 11:47 | MHC.STROKE ---
0856 EMS PRE-NOTIFIED, NO STROKE ALERT, ARRIVED AT [facility] 0900. EXAMINED BY PROVIDER. BP ELEVATED 174/85. CT AND CTA H/N ORDERED. 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 I MET WITH THE PATIENT AND HER , NIHSS = 0, I PROVIDED STROKE/TIA EDUCATION AND WE REVIEWED HER MEDICATIONS AND RISK FACTORS. SHE HAS A PCP AT [facility] AND ACTUALLY HAD AN APPOINTMENT TODAY. SHE ADMITS TO BEING UNDER STRESS, SHE IS A PLUMBING WAREHOUSE HELPER. SHE TAKES HER MEDICATIONS FAITHFULLY, I REVIEWED THE STROKE EDUCATION BOOKLET AND STRESS THE HTN ARE HER PRIMARY RISK FACTORS, HER BMI IS 28. I REVIEWED TECHNIQUES TO DEAL WITH STRESS, IF SYMPTOMS RETURN SHE SHOULD RETURN TO THE HOSPITAL, I REVIEWED HOW TO ACCESS 911 AND TO FOLLOW UP WITH HER PCP. I ANSWERED ALL OF THEIR QUESTIONS AND GAVE THEM AA COPY OF THE CT/CTA RESULTS.
[2022-08-12] MEDS: diphenhydrAMINE HCL 50 MG/ML VIAL 25 MG IVPUSH (11:52)
[2022-08-12] MEDS: Metoclopramide HCl 10 MG/2 ML VIAL IVPUSH (11:53)
== END 2022-08-12 13:36 | disposition home or self-care (01) ==
PROVIDERS: Physician Assistant Medical; Emergency Provider Emergency Medicine Emergency Medical Services
DX: R42 Dizziness and giddiness (principal); I10 Essential (primary) hypertension; Z20.822 Contact with and (suspected) exposure to COVID-19; Z20.828 Contact with and (suspected) exposure to other viral communicable diseases; Z79.899 Other long term (current) drug therapy
CPT/HCPCS: 0241U; 70450; 70496; 70498; 80048; 80076; 81001; 83735; 85025; 85610; 85730; 93005; 96374; 96375; 99284; 99285; J1200; J2765; Q9967